=== PATIENT | female | born 2000 | race Caucasian/White ===

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

== ENCOUNTER → 2020-12-05 10:00 | Outpatient (BNVA) | payer BC, SELFPAY | PROVIDERS: PCP Nurse Practitioner Family; Visit Provider Family Medicine | DX: S89.90XA Unspecified injury of unspecified lower leg, initial encounter (principal); X58.XXXA Exposure to other specified factors, initial encounter | CPT/HCPCS: 73562 ==

== ENCOUNTER 2022-01-18 09:30 | Outpatient (CLI) | payer BC, SELFPAY ==
--- NOTE | 2022-01-18 10:05 | XR_ITS ---
WS: [id number] Cervical spine, 3 views, 01/18/2022 Clinical Data: CHRONIC NECK PAIN Comparison: None. Findings: No compression fractures are seen. The disc heights are normal. There is no prevertebral so ft tissue swelling. The odontoid is unremarkable. The soft tissues of the neck and the lung apices ar e normal. XR/XR cervical spine 3V* [id number] Impression: Negative cervical spine.
--- NOTE | 2022-01-18 10:19 | XR_ITS ---
WS: [id number] Thoracic spine, 3 views, 01/18/2022 Clinical Data: CHRONIC BACK PAIN Comparison: None. Findings: No compression fractures are seen. The disc heights are normal. The paraspinal regions are normal. There are clips in the right upper quadrant from a cholecystectomy . XR/XR thoracic spine 3V* [id number] Impression: Negative thoracic spine.
== END 2022-01-18 09:31 | disposition home or self-care (01) ==
PROVIDERS: PCP Nurse Practitioner Family; Visit Provider Family Medicine
DX: M54.2 Cervicalgia (principal); G89.29 Other chronic pain; M54.6 Pain in thoracic spine
CPT/HCPCS: 72040; 72072

== ENCOUNTER 2022-05-01 12:08 | Emergency (ER) | payer BC, SELFPAY ==
[2022-05-01 12:38] VITALS: BP 137/88; PULSE 85; RESP 14; TEMP 37; O2SAT 99
[2022-05-01 14:02] LABS: Basophils % 0.4 %; Eosinophils % 0.2 %; Hematocrit 40.9 % (37.0-47.0); Hemoglobin 13.5 g/dL (11.5-15.3); Lymphocytes # 1.4 10^3/uL (0.8-4.8); Lymphocytes % 26.5 %; Mean Corpuscular Hemoglobin 29.2 pg (28.0-34.0); Mean Corpuscular Volume 88.3 fl (81-99); Mean Platelet Volume 11.9 fL (7.4-10.4); Monocytes # 0.6 10^3/uL (0.2-0.9); Monocytes % 11.4 %; Neutrophils # 3.33 10^3/uL (1.8-7.7); Neutrophils % 61.1 %; Nucleated Red Blood Cells % 0 %; Platelet Count 230 10^3/cmm (130-400); Red Blood Count 4.63 10^6/uL (4.1-5.3); Red Cell Distribution Width 12.8 % (12.1-15.1); White Blood Count 5.4 10^3/uL (4.0-10.0)
[2022-05-01 14:17] LABS: Add Urine Microscopic? YES; Bilirubin Urine Neg (Negative); Blood Urine Neg (Negative); Glucose Urine UA Norm (Normal); Ketones Urine 2+ (Negative); Leukocyte Esterase Urine Negative (Negative); Nitrate Urine Negative (Negative); Protein Urine Neg (Negative); Specific Gravity, Urine 1.015 (1.005-1.030); Urine Appearance Cloudy (CLEAR); Urine Color Yellow (Yellow); Urobilinogen Urine Norm (Negative); pH Urine 6 (5-7)
[2022-05-01 14:35] LABS: Alanine Aminotransferase 47 U/L (0-33); Albumin Level 4.4 g/dL (3.5-5.2); Alkaline Phosphatase 55 U/L (35-105); Anion Gap 13.8 (5-19); Aspartate Amino Transferase 26 U/L (0-32); Blood Urea Nitrogen 4 mg/dL (6-20); Calcium 9.3 mg/dL (8.5-10.5); Carbon Dioxide 22 mmol/L (22-29); Chloride 104 mmol/L (98-107); Creatinine Clr Calc Pharmacy 193.7506; Globulin 2.7 g/dL (1.3-4.6); Glomerular Filtration Rate 154.3 mL/min (90-130); Glucose 81 mg/dL (65-115); Osmolality Calculated 278 mOsm/kg (285-295); Potassium 3.8 mmol/L (3.5-5.1); Sodium 136 mmol/L (136-145); Total Bilirubin 0.3 mg/dL (0.15-1.2); Total Protein 7.1 g/dL (6.6-8.7)
[2022-05-01 14:36] LABS: Add Urine Culture? No; Bacteria Urine TRACE /hpf
--- NOTE | 2022-05-01 14:42 | US_ITS ---
WS: [id number] ULTRASOUND ABDOMINAL AORTA HISTORY: vaginal bleeding <20 weeks COMPARISON: None available. TECHNIQUE: 2-D and Doppler imaging submitted. Normal size anteverted uterus. Intrauterine gestational sac with a mean diameter of 0.6 cm correspond s to gestation of 5 weeks and 4 days. There is a small yolk sac present. No pole or cardiac act ivity is confirmed at this time. May be due to very early gestation. The yolk sac is normal size. The re is a small subchorionic hemorrhage measuring 10 x 10 x 5 mm. Cervix is closed. No free fluid in the cul-de-sac. LEFT ovary measures 2.2 x 2.5 x 3.1 cm and contain s a corpus luteum measuring 1.4 x 1.5 x 2.2 cm. US/US OB transvaginal [id number] IMPRESSION: 1. Intrauterine gestational sac corresponds to a gestation of 5 weeks 4 days. 2. At this time there is no pole or cardiac activity identified. There i s a yolk sac. Differential includes too early to visualize pole or anembr yonic gestation. Recommend one week follow-up ultrasound to confirm development of pole development and cardiac activity. 3. Small subchorionic hemorrhage.
[2022-05-01] MEDS: sodium chloride 0.9% 1,000 ML 999 ML IV (15:57)
--- NOTE | 2022-05-01 16:45 | W.ED.ABDPA2 ---
Documented by User: KIERRA Ramey 05/01/22 19:49 HPI - Abdominal Pain General: Chief Complaint: Abdominal Pain Stated Complaint: abd pains, Less than 20 weeks Time Seen by Provider: 05/01/22 12:51 History of Present Illness: Patient is in today for lower abdominal pain. She reports that yesterday she had a little bit of a fever but has not had any today. She reports that she has a history of urinary tract infections and kidney infections. She does report that she thinks she is approximately 10 weeks . Her first visit with SENIOR MANAGER is 18 May. She reports that she has had some pretty significant nausea and vomiting although she is trying to stay well-hydrated with water. Associated Symptoms: Reports fever(s), nausea and vomiting; Denies chills and dysuria Review of Systems Const: Reports: fever(s); Denies: chills or body aches Card: Denies: chest pain or palpitations Resp: Denies: dyspnea, productive cough or non-productive cough GI: Reports: abdominal pain, nausea and vomiting : Reports: flank pain and vaginal bleeding (Noticed blood 1 time this morning with wiping only); Denies: difficulty voiding or dysuria PFSH ED PFSH: Medical History Recurrent UTI Surgical History History of tympanostomy Status post cholecystectomy Status post tonsillectomy and adenoidectomy Family History Denies family history of Colon cancer Ovarian cancer Diabetes Heart disease Hyperlipidemia Breast cancer Family history of thyroid problem Hypertension Uterine cancer Stroke Female Reproductive History: : 1 Physical Exam Const: COMMON NORMALS: no acute distress, patient oriented x3 and alert HENMT: COMMON NORMALS: TM's normal bilaterally TYMPANIC MEMBRANE: TM's normal bilaterally THROAT: posterior oropharynx normal and uvula midline Neck/C-Spine: COMMON NORMALS: no JVD Resp: COMMON NORMALS: normal respiratory effort, No use of accessory muscles and clear to auscultation bilaterally AUSCULTATION: clear to auscultation bilaterally Cardio: COMMON NORMALS: no JVD, regular rate, regular rhythm, S1 normal heart sound present, S2 normal heart sound present and No murmurs present (Cardio) RATE: regular rate RHYTHM: regular rhythm HEART SOUNDS: S1 normal heart sound present and S2 normal heart sound present GI: COMMON NORMALS: Soft to palpation INSPECTION: Yes normal to inspection PALPATION: Yes Soft to palpation and Yes Tenderness to palpation present (GI) Details: LLQ, RLQ and other (Suprapubic) OTHER: Mild tenderness to right and left lower quadrant abdomen and suprapubic region. No guarding, rebound tenderness no peritoneal signs. Patient does have slight left-sided CVA tenderness Neuro: COMMON NORMALS: patient oriented x3 SENSORIUM/ORIENTATION: Yes alert Course Vital Signs: Vital signs: Vital Signs Temperature 98.6 F 05/01/22 12:38 Pulse Rate 77 05/01/22 17:21 Respiratory Rate 15 05/01/22 17:21 Blood Pressure 118/68 05/01/22 17:21 Pulse Oximetry 98 05/01/22 17:21 Oxygen Delivery Me thod 05/01/22 12:38 MDM - Abdominal Pain Medical Decision Making Considered UTI, pyelonephritis, renal stone, ectopic , miscarriage, appendicitis.. The patient is not currently having vaginal bleeding and only noticed a small amount of pink blood when wiping 1 time. Patient is not sure of her dates for and has not had any confirmatory ultrasound. Urine is negative for leukoesterase or nitrates. Negative for hematuria. CBC is within normal limits. Less suspicion for UTI pyelonephritis and renal stone given UA results and CBC results. Low suspicion for appendicitis given the lack of rebound or guarding tenderness to the right lower quadrant abdomen as well as a normal white blood cell count. Patient does have ketones in her urine with ongoing vomiting I will hydrate patient and provide medication for nausea. Ultrasound transvaginal shows intrauterine gestational sac corresponding to a gestation 5 weeks 4 days without pole or cardiac activity identified. A small subchorionic hemorrhage is also noted. Discussed the results of ultrasound and lab testing with the patient. Her vital signs are stable she is afebrile and here. I do not see any evidence of acute bacterial infection at this time. Her abdomen exam does not indicate an acute abdomen process at this time. Advised patient of ultrasound results and need for follow-up ultrasound in a week or so. Advised her to continue to schedule follow-up with SENIOR MANAGER. Follow-up with primary care next week. I will place an order to case management to help facilitate an outpatient ultrasound repeat. Return to the ER as needed for any new or worsening symptoms including, but not limited to, increased pain, increased vomiting, fever, inability to keep down oral liquids. Lab Data 05/01/22 13:49 05/01/22 13:49 Labs/Radiology: Radiology Impressions Transvaginal US 05/01/22 14:42 IMPRESSION: 1. Intrauterine gestational sac corresponds to a gestation of 5 weeks 4 days. 2. At this time there is no pole or cardiac activity identified. There is a yolk sac. Differential includes too early to visualize pole or anembryonic gestation. Recommend one week follow-up ultrasound to confirm development of pole development and cardiac activity. 3. Small subchorionic hemorrhage. Laboratory Results WBC 5.4 10^3/uL (4.0-10.0) 05/01/22 13:49 RBC 4.63 10^6/uL (4.1-5.3) 05/01/22 13:49 Hgb 13.5 g/dL (11.5-15.3) 05/01/22 13:49 Hct 40.9 % (37.0-47.0) 05/01/22 13:49 MCV 88.3 fl (81-99) 05/01/22 13:49 MCH 29.2 pg (28.0-34.0) 05/01/22 13:49 MCHC 33.0 g/dL (30.0-36.0) 05/01/22 13:49 RDW 12.8 % (12.1-15.1) 05/01/22 13:49 Plt Count 230 10^3/cmm (130-400) 05/01/22 13:49 MPV 11.9 fL (7.4-10.4) H 05/01/22 13:49 Neut % (Auto) 61.1 % 05/01/22 13:49 Lymph % (Auto) 26.5 % 05/01/22 13:49 [place] % (Auto) 11.4 % 05/01/22 13:49 Eos % (Auto) 0.2 % 05/01/22 13:49 Baso % (Auto) 0.4 % 05/01/22 13:49 Neut # (Auto) 3.33 10^3/uL (1.8-7.7) 05/01/22 13:49 Lymph # (Auto) 1.4 10^3/uL (0.8-4.8) 05/01/22 13:49 [place] # (Auto) 0.6 10^3/uL (0.2-0.9) 05/01/22 13:49 Eos # (Auto) 0.0 10^3/uL (0.0-0.8) 05/01/22 13:49 Baso # (Auto) 0.0 10^3/uL (0.0-0.1) 05/01/22 13:49 Nucleated RBC % (auto) 0 % 05/01/22 13:49 Nucleated RBCs # 0.0 /100WBC 05/01/22 13:49 Sodium 136 mmol/L (136-145) 05/01/22 13:49 Potassium 3.8 mmol/L (3.5-5.1) 05/01/22 13:49 Chloride 104 mmol/L (98-107) 05/01/22 13:49 Carbon Dioxide 22 mmol/L (22-29) 05/01/22 13:49 Anion Gap 13.8 (5-19) 05/01/22 13:49 BUN 4 mg/dL (6-20) L 05/01/22 13:49 Creatinine 0.5 mg/dL (0.5-0.9) 05/01/22 13:49 GFR Calculation 154.3 mL/min (90-130) H 05/01/22 13:49 Glucose 81 mg/dL (65-115) 05/01/22 13:49 Calculated Osmolality 278 mOsm/kg (285-295) L 05/01/22 13:49 Calcium 9.3 mg/dL (8.5-10.5) 05/01/22 13:49 Total Bilirubin 0.3 mg/dL (0.15-1.2) 05/01/22 13:49 AST 26 U/L (0-32) 05/01/22 13:49 ALT 47 U/L (0-33) H 05/01/22 13:49 Alkaline Phosphatase 55 U/L (35-105) 05/01/22 13:49 Total Protein 7.1 g/dL (6.6-8.7) 05/01/22 13:49 Albumin 4.4 g/dL (3.5-5.2) 05/01/22 13:49 Globulin 2.7 g/dL (1.3-4.6) 05/01/22 13:49 Ser , Semi-Qnt 2665.00 mIU/mL 05/01/22 13:49 Urine Color Yellow (Yellow) 05/01/22 13:49 Urine Appearance Cloudy (CLEAR) A 05/01/22 13:49 Urine pH 6 (5-7) 05/01/22 13:49 Ur Specific [place] 1.015 (1.005-1.030) 05/01/22 13:49 Urine Protein Neg (Negative) 05/01/22 13:49 Urine Glucose (UA) Norm (Normal) 05/01/22 13:49 Urine Ketones 2+ (Negative) H 05/01/22 13:49 Urine Blood Neg (Negative) 05/01/22 13:49 Urine Nitrate Negative (Negative) 05/01/22 13:49 Urine Bilirubin Neg (Negative) 05/01/22 13:49 Urine Urobilinogen Norm mg/dL (Negative) 05/01/22 13:49 Ur Leukocyte Esterase Negative (Negative) 05/01/22 13:49 Urine RBC None /hpf (0-2) 05/01/22 13:49 Urine WBC None /hpf (0-5) 05/01/22 13:49 Ur Squamous Epith Cells None /hpf (0-5) 05/01/22 13:49 Amorphous Sediment Not Reportable 05/01/22 13:49 Urine Bacteria Trace /hpf (NONE) 05/01/22 13:49 Blood Type A Positive 05/01/22 13:47 Rho(D) Type Positive 05/01/22 13:47 Discharge Plan Discharge Patient Disposition: Home Clinical Impression: Abdominal pain, Abdominal pain during in first trimester Condition: Stable Prescriptions: New ondansetron 4 mg tablet,disintegrating 4 mg PO Q8H PRN (Reason: nausea and vomiting) 3 Days Qty: 9 0RF No Action ibuprofen 200 mg tablet 800 mg PO Q6H PRN (Reason: Pain) albuterol sulfate [ProAir HFA] 90 mcg/actuation HFA aerosol inhaler 2 puff INHALATION Q4H PRN (Reason: shortness of breath or wheezing) Qty: 8 3RF acetaminophen [Tylenol] 325 mg tablet 325 mg PO QID PRN (Reason: Pain) Flovent HFA 110 mcg/actuation HFA aerosol inhaler 1 puff INHALATION BID 28-800 mg-mcg Tablet 1 tab PO DAILY Discharge Orders: Discharge ED (Routine); Ordered 05/01/22 Ordered By: Delmy Carson Discharge Diet: Usual diet Discharge Activity: Limit activity as instructed Patient Instructions: Abdominal Pain (ED), Pelvic Rest (ED) Activity Restrictions/Additional Instructions: I recommend pelvic rest, nothing in the vagina, until released by SENIOR MANAGER. Make sure that you are resting and staying well-hydrated. Use Zofran only as needed for nausea and vomiting. Follow-up with primary care provider. Return to the ER for any new or worsening symptoms including but not limited to increased abdominal pain, fever, chills Coding Level of Care Code ED Soliciting Freight Agent for Chg Fwd Exam Detailed Documented by User: Enoch Chavarria DO 05/03/22 06:43 HPI - Abdominal Pain General: Chief Complaint: Abdominal Pain Stated Complaint: abd pains, Less than 20 weeks Time Seen by Provider: 05/01/22 12:51 PFSH ED PFSH: Medical History Recurrent UTI Surgical History History of tympanostomy Status post cholecystectomy Status post tonsillectomy and adenoidectomy Family History Denies family history of Colon cancer Ovarian cancer Diabetes Heart disease Hyperlipidemia Breast cancer Family history of thyroid problem Hypertension Uterine cancer Stroke Course Vital Signs: Vital signs: Vital Signs Temperature 98.6 F 05/01/22 12:38 Pulse Rate 77 05/01/22 17:21 Respiratory Rate 15 05/01/22 17:21 Blood Pressure 118/68 05/01/22 17:21 Pulse Oximetry 98 05/01/22 17:21 Oxygen Delivery Me thod 05/01/22 12:38 MDM - Abdominal Pain Medical Decision Making Considered UTI, pyelonephritis, renal stone, ectopic , miscarriage, appendicitis.. The patient is not currently having vaginal bleeding and only noticed a small amount of pink blood when wiping 1 time. Patient is not sure of her dates for and has not had any confirmatory ultrasound. Urine is negative for leukoesterase or nitrates. Negative for hematuria. CBC is within normal limits. Less suspicion for UTI pyelonephritis and renal stone given UA results and CBC results. Low suspicion for appendicitis given the lack of rebound or guarding tenderness to the right lower quadrant abdomen as well as a normal white blood cell count. Patient does have ketones in her urine with ongoing vomiting I will hydrate patient and provide medication for nausea. Ultrasound transvaginal shows intrauterine gestational sac corresponding to a gestation 5 weeks 4 days without pole or cardiac activity identified. A small subchorionic hemorrhage is also noted. Discussed the results of ultrasound and lab testing with the patient. Her vital signs are stable she is afebrile and here. I do not see any evidence of acute bacterial infection at this time. Her abdomen exam does not indicate an acute abdomen process at this time. Advised patient of ultrasound results and need for follow-up ultrasound in a week or so. Advised her to continue to schedule follow-up with SENIOR MANAGER. Follow-up with primary care next week. I will place an order to case management to help facilitate an outpatient ultrasound repeat. Return to the ER as needed for any new or worsening symptoms including, but not limited to, increased pain, increased vomiting, fever, inability to keep down oral liquids. Chart reviewed and patient discussed with midlevel. Agree with assessment and plan. Lab Data 05/01/22 13:49 05/01/22 13:49 Labs/Radiology: Radiology Impressions Transvaginal US 05/01/22 14:42
[2022-05-01] MEDS: ondansetron 2 mg/ML SDV 2 mL 4 MG IVP (17:16)
[2022-05-01 17:21] VITALS: BP 118/68; PULSE 77; RESP 15; O2SAT 98
--- NOTE | 2022-05-02 10:12 | DCPLANNER ---
salt manager had message to schedule an outpatient US for patient. After speaking with patient, who stated that she has an ultrasound scheduled at [facility] in [place] on May 18, 2022. Patient stated that she would wait and have the US at the clinic in [facility]. salt manager called the clinic in [place] and confirmed that patient has an US scheduled.
== END 2022-05-01 17:20 | disposition home or self-care (01) ==
PROVIDERS: Emergency Provider Nurse Practitioner Family
DX: O26.891 Other specified pregnancy related conditions, first trimester (principal); R10.9 Unspecified abdominal pain; Z3A.01 Less than 8 weeks gestation of pregnancy
CPT/HCPCS: 76817; 80053; 81001; 84702; 85025; 86900; 96361; 96374; 99285; J2405; J7030

== ENCOUNTER → 2022-06-04 11:00 | Outpatient (BNVA) | payer BC, MEDICAID, SELFPAY | PROVIDERS: Visit Provider Obstetrics & Gynecology | DX: Z34.90 Encounter for supervision of normal pregnancy, unspecified, unspecified trimester (principal) | CPT/HCPCS: 80307; 84315; 87086 ==

== ENCOUNTER → 2022-06-19 09:58 | Outpatient (BNVA) | payer BC, MEDICAID, SELFPAY | PROVIDERS: Visit Provider Obstetrics & Gynecology | DX: Z34.91 Encounter for supervision of normal pregnancy, unspecified, first trimester (principal); Z3A.12 12 weeks gestation of pregnancy | CPT/HCPCS: 76801 ==

== ENCOUNTER → 2022-06-29 11:30 | Outpatient (BNVA) | payer BC, MEDICAID, SELFPAY | PROVIDERS: Visit Provider Obstetrics & Gynecology | DX: Z34.91 Encounter for supervision of normal pregnancy, unspecified, first trimester (principal) | CPT/HCPCS: 84315; 85027; 86762; 86803; 86850; 86900; 87340; 87491; 87591; 87661; 87806; 88175 ==

== ENCOUNTER → 2022-06-30 02:08 | Outpatient (BNVA) | payer BC, MEDICAID, SELFPAY | PROVIDERS: Visit Provider Obstetrics & Gynecology | DX: Z34.90 Encounter for supervision of normal pregnancy, unspecified, unspecified trimester (principal) | CPT/HCPCS: 87522 ==

== ENCOUNTER → 2022-07-17 13:00 | Outpatient (BNVA) | payer BC, MEDICAID, SELFPAY | PROVIDERS: Visit Provider Nurse Practitioner Women's Health | DX: R76.8 Other specified abnormal immunological findings in serum; O99.320 Drug use complicating pregnancy, unspecified trimester; F12.90 Cannabis use, unspecified, uncomplicated | CPT/HCPCS: 80307; 84315; 86592 ==

== ENCOUNTER → 2022-08-13 10:28 | Outpatient (BNVA) | payer BC, MEDICAID, SELFPAY | PROVIDERS: Visit Provider Obstetrics & Gynecology | DX: O32.1XX0 Maternal care for breech presentation, not applicable or unspecified (principal); Z3A.20 20 weeks gestation of pregnancy | CPT/HCPCS: 76805 ==

== ENCOUNTER → 2022-08-30 08:20 | Outpatient (BNVA) | payer BC, MEDICAID, SELFPAY | PROVIDERS: Visit Provider Obstetrics & Gynecology | DX: Z34.90 Encounter for supervision of normal pregnancy, unspecified, unspecified trimester (principal) | CPT/HCPCS: 84315; 87086 ==

== ENCOUNTER → 2022-09-11 11:32 | Outpatient (BNVA) | payer BC, MEDICAID, SELFPAY | PROVIDERS: Visit Provider Obstetrics & Gynecology | DX: Z34.92 Encounter for supervision of normal pregnancy, unspecified, second trimester (principal); Z3A.24 24 weeks gestation of pregnancy | CPT/HCPCS: 76816; 82105; 82950; 84315 ==

== ENCOUNTER → 2022-10-09 08:45 | Outpatient (BNVA) | payer BC, MEDICAID, SELFPAY | PROVIDERS: Visit Provider Obstetrics & Gynecology | DX: Z34.90 Encounter for supervision of normal pregnancy, unspecified, unspecified trimester (principal) | CPT/HCPCS: 84315; 85025; 86592; 86803; 87522 ==

== ENCOUNTER → 2022-10-23 15:15 | Outpatient (BNVA) | payer BC, MEDICAID, SELFPAY | PROVIDERS: Visit Provider Obstetrics & Gynecology | DX: Z34.90 Encounter for supervision of normal pregnancy, unspecified, unspecified trimester (principal) | CPT/HCPCS: 83550; 84315; 86003; 86008 ==

== ENCOUNTER 2022-11-26 17:21 | Emergency (ER) | payer BC, MEDICAID, SELFPAY ==
[2022-11-26 17:25] VITALS: BP 111/71; PULSE 108; RESP 16; TEMP 36.7; O2SAT 97; BMI 39.6
[2022-11-26 18:22] VITALS: O2SAT 98
--- NOTE | 2022-11-26 18:40 | XRR_ITS ---
PROCEDURE INFORMATION: Exam: XR Chest Exam date and time: 11/26/2022 6:47 PM Age: 22 years old Clinical indication: Cough and shortness of breath; Additional info: Dyspnea, wheezing, rhonchi, PT is 36 weeks , PT informed of risks and still TECHNIQUE: Imaging protocol: Radiologic exam of the chest. Views: 1 view. COMPARISON: CR XR chest 2V* [id number] 06/23/2019 2:55 PM FINDINGS: Lungs: Unremarkable. No consolidation. Pleural spaces: Unremarkable. No pleural effusion. No pneumothorax. Heart/Mediastinum: Unremarkable. No cardiomegaly. Bones/joints: Unremarkable. XR/XR chest 1V portable [id number] IMPRESSION: No acute findings.
[2022-11-26 19:03] LABS: Basophils % 0.1 %; Eosinophils % 0.1 %; Hemoglobin 11.4 g/dL (11.5-15.3); Lymphocytes # 1.5 10^3/uL (0.8-4.8); Lymphocytes % 16.1 %; Mean Corpuscular HGB Conc 32.6 g/dL (30.0-36.0); Mean Corpuscular Hemoglobin 27.9 pg (28.0-34.0); Mean Corpuscular Volume 85.8 fl (81-99); Mean Platelet Volume 11.1 fL (7.4-10.4); Monocytes # 0.7 10^3/uL (0.2-0.9); Monocytes % 7.6 %; Neutrophils # 6.88 10^3/uL (1.8-7.7); Neutrophils % 75.7 %; Nucleated Red Blood Cells % 0 %; Platelet Count 218 10^3/cmm (130-400); Red Blood Count 4.08 10^6/uL (4.1-5.3); Red Cell Distribution Width 13.2 % (12.1-15.1); White Blood Count 9.1 10^3/uL (4.0-10.0)
[2022-11-26] MEDS: sodium chloride 0.9% 1,000 ML 999 ML IV (19:05)
[2022-11-26] MEDS: acetaminophen 1,000 MG/100 ML PIGGYBACK 400 MG IV (19:06)
[2022-11-26 19:28] LABS: Sodium 137 mmol/L (136-145)
[2022-11-26 19:29] VITALS: BP 107/56; PULSE 76; O2SAT 98
[2022-11-26 19:35] VITALS: BP 126/97; PULSE 101; RESP 17; O2SAT 94
[2022-11-26 19:41] LABS: Alanine Aminotransferase 9 U/L (0-33); Anion Gap 16.6 (5-19); Aspartate Amino Transferase 14 U/L (0-32); Calcium 9.1 mg/dL (8.5-10.5); Glucose 75 mg/dL (65-115); Total Bilirubin 0.2 mg/dL (0.15-1.2)
[2022-11-26 19:48] LABS: Add Urine Microscopic? YES; Bilirubin Urine Neg (Negative); Blood Urine Neg (Negative); Glucose Urine UA Norm (Normal); Ketones Urine 1+ (Negative); Leukocyte Esterase Urine Negative (Negative); Nitrate Urine Negative (Negative); Protein Urine Neg (Negative); Specific Gravity, Urine 1.005 (1.005-1.030); Urine Appearance SL Hazy (CLEAR); Urine Color Light yellow (Yellow); Urobilinogen Urine Neg (Negative); pH Urine 7 (5-7)
[2022-11-26 19:48] LABS: Blood Urea Nitrogen 2 mg/dL (6-20); Carbon Dioxide 21 mmol/L (22-29); Glomerular Filtration Rate 199.6 mL/min (90-130); Osmolality Calculated 279 mOsm/kg (285-295); Total Protein 6.4 g/dL (6.6-8.7)
[2022-11-26 19:49] LABS: Albumin Level 3.5 g/dL (3.5-5.2); Alkaline Phosphatase 100 U/L (35-105); Globulin 2.9 g/dL (1.3-4.6)
[2022-11-26 19:49] LABS: Add Urine Culture? No; Bacteria Urine 1+ /hpf; Squamous Epithelial Cell Urine 0-4 /hpf (0-5); WBC Urine 0-4 /hpf (0-5)
[2022-11-26 19:50] LABS: Chloride 103 mmol/L (98-107); Potassium 3.6 mmol/L (3.5-5.1)
[2022-11-26 19:55] LABS: Influenza A by IFA Negative (Negative); Influenza B by IFA Negative (Negative)
--- NOTE | 2022-11-26 20:08 | ED_ITS ---
HPI - COVID General: Chief Complaint: COVID symptoms Stated Complaint: sent by sulema/LARISA/radha to breathe/fever/cough Time Seen by Provider: 11/26/22 18:21 History of Present Illness: Patient presents to the ER with complaints of shortness of breath. Patient states she seen her PCP last week and was started on antibiotics biotic for an earache that she saw her PCP again who said she has fluid in her lungs so she directed her here to be further really worked up and checked out. Patient is 36 weeks . Patient states she feels no better after being on the antibiotics from the breathing standpoint but her ears do feel better. COVID Results: No Data to Display Review of Systems General: Reports: 10 or more systems reviewed and unremarkable except in HPI and below PFSH ED PFSH: Medical History No pertinent past medical history neghx: htn,dm,thyroid,dvt/pe PCP: Recurrent UTI Surgical History History of tympanostomy Status post cholecystectomy Status post tonsillectomy and adenoidectomy Family History Denies family history of Colon cancer Ovarian cancer Diabetes Heart disease Hyperlipidemia Breast cancer Family history of thyroid problem Hypertension Uterine cancer Stroke Social History Smoking and tobacco status: former smoker Alcohol intake: never Substance/Drug Use: never Adopted: No Caregiver/support person: No Lives independently: No Marital status: Single Physical Exam Const: COMMON NORMALS: no acute distress, average body habitus, patient oriented x3, no limitations, healthy appearing, alert and well nourished HENMT: COMMON NORMALS: normocephalic, atraumatic, hearing grossly normal bilaterally, external ears normal, Normal external nose present and moist oral mucous membranes HEAD & SCALP: normocephalic and atraumatic NOSE: Normal external nose present EXTERNAL EAR: Yes external ears normal Eye: COMMON NORMALS: Equal, round and reactive pupils present, EOMs intact bilaterally, conjunctivae normal and no scleral icterus CONJUNCTIVA: Yes conjunctivae normal PUPIL: Yes Equal, round and reactive pupils present Neck/C-Spine: COMMON NORMALS: full ROM, no lymphadenopathy, supple, no meningeal signs, no JVD and Thyroid normal THYROID: Thyroid normal Chest: COMMONS NORMALS: normal inspection of the chest and normal palpation of entire chest wall Resp: COMMON NORMALS: normal respiratory effort, No retractions, No use of accessory muscles and clear to auscultation bilaterally AUSCULTATION: clear to auscultation bilaterally Cardio: COMMON NORMALS: no JVD, regular rate, regular rhythm, S1 normal heart sound present, S2 normal heart sound present, No gallops present (Cardio), No clicks present (Cardio), No murmurs present (Cardio) and No rub (Cardio) RATE: regular rate RHYTHM: regular rhythm HEART SOUNDS: S1 normal heart sound present and S2 normal heart sound present GI: COMMON NORMALS: Normal to inspection, nondistended, normoactive bowel sounds present, Soft to palpation, non-tender and No hepatosplenomegaly present PALPATION: Yes Soft to palpation and Yes No hepatosplenomegaly present Neuro: COMMON NORMALS: patient oriented x3 SENSORIUM/ORIENTATION: Yes alert MENINGEAL SIGNS: Yes no meningeal signs Course Vital Signs: Vital signs: Vital Signs Temperature 98.1 F 11/26/22 17:25 Pulse Rate 101 H 11/26/22 19:35 Respiratory Rate 17 11/26/22 19:35 Blood Pressure 126/97 11/26/22 19:35 Pulse Oximetry 94 11/26/22 19:35 Oxygen Delivery Me thod Room Air 11/26/22 19:35 MDM - COVID Medical Decision Making Presents to the ER with complaints of shortness of breath and just not feeling good. Patient had lab work and a chest x-ray. All of which was essentially benign patient would not let her screen for COVID. Upon discharge patient got nauseous and was given Zofran in her IV. Patient will be discharged and followed up with her family practice physician and her OB and in the next week. Lab Data 11/26/22 18:54 11/26/22 18:54 Radiology Impressions Chest X-Ray 11/26/22 18:40 IMPRESSION: No acute findings. Laboratory Results WBC 9.1 10^3/uL (4.0-10.0) 11/26/22 18:54 RBC 4.08 10^6/uL (4.1-5.3) L 11/26/22 18:54 Hgb 11.4 g/dL (11.5-15.3) L 11/26/22 18:54 Hct 35.0 % (37.0-47.0) L 11/26/22 18:54 MCV 85.8 fl (81-99) 11/26/22 18:54 MCH 27.9 pg (28.0-34.0) L 11/26/22 18:54 MCHC 32.6 g/dL (30.0-36.0) 11/26/22 18:54 RDW 13.2 % (12.1-15.1) 11/26/22 18:54 Plt Count 218 10^3/cmm (130-400) 11/26/22 18:54 MPV 11.1 fL (7.4-10.4) H 11/26/22 18:54 Neut % (Auto) 75.7 % 11/26/22 18:54 Lymph % (Auto) 16.1 % 11/26/22 18:54 [place] % (Auto) 7.6 % 11/26/22 18:54 Eos % (Auto) 0.1 % 11/26/22 18:54 Baso % (Auto) 0.1 % 11/26/22 18:54 Neut # (Auto) 6.88 10^3/uL (1.8-7.7) 11/26/22 18:54 Lymph # (Auto) 1.5 10^3/uL (0.8-4.8) 11/26/22 18:54 [place] # (Auto) 0.7 10^3/uL (0.2-0.9) 11/26/22 18:54 Eos # (Auto) 0.0 10^3/uL (0.0-0.8) 11/26/22 18:54 Baso # (Auto) 0.0 10^3/uL (0.0-0.1) 11/26/22 18:54 Nucleated RBC % (auto) 0 % 11/26/22 18:54 Nucleated RBCs # 0.0 /100WBC 11/26/22 18:54 Sodium 137 mmol/L (136-145) 11/26/22 18:54 Potassium 3.6 mmol/L (3.5-5.1) 11/26/22 18:54 Chloride 103 mmol/L (98-107) 11/26/22 18:54 Carbon Dioxide 21 mmol/L (22-29) L 11/26/22 18:54 Anion Gap 16.6 (5-19) 11/26/22 18:54 BUN 2 mg/dL (6-20) L 11/26/22 18:54 Creatinine 0.4 mg/dL (0.5-0.9) L 11/26/22 18:54 GFR Calculation 199.6 mL/min (90-130) H 11/26/22 18:54 Glucose 75 mg/dL (65-115) 11/26/22 18:54 Calculated Osmolality 279 mOsm/kg (285-295) L 11/26/22 18:54 Calcium 9.1 mg/dL (8.5-10.5) 11/26/22 18:54 Total Bilirubin 0.2 mg/dL (0.15-1.2) 11/26/22 18:54 AST 14 U/L (0-32) 11/26/22 18:54 ALT 9 U/L (0-33) 11/26/22 18:54 Alkaline Phosphatase 100 U/L (35-105) 11/26/22 18:54 Total Protein 6.4 g/dL (6.6-8.7) L 11/26/22 18:54 Albumin 3.5 g/dL (3.5-5.2) 11/26/22 18:54 Globulin 2.9 g/dL (1.3-4.6) 11/26/22 18:54 Urine Color Light yellow (Yellow) 11/26/22 18:26 Urine Appearance Sl hazy (CLEAR) A 11/26/22 18:26 Urine pH 7 (5-7) 11/26/22 18:26 Ur Specific [place] 1.005 (1.005-1.030) 11/26/22 18:26 Urine Protein Neg (Negative) 11/26/22 18:26 Urine Glucose (UA) Norm (Normal) 11/26/22 18:26 Urine Ketones 1+ (Negative) H 11/26/22 18:26 Urine Blood Neg (Negative) 11/26/22 18:26 Urine Nitrate Negative (Negative) 11/26/22 18:26 Urine Bilirubin Neg (Negative) 11/26/22 18:26 Urine Urobilinogen Neg mg/dL (Negative) 11/26/22 18:26 Ur Leukocyte Esterase Negative (Negative) 11/26/22 18:26 Urine RBC None /hpf (0-2) 11/26/22 18:26 Urine WBC 0-4 /hpf (0-5) H 11/26/22 18:26 Ur Squamous Epith Cells 0-4 /hpf (0-5) H 11/26/22 18:26 Amorphous Sediment Not Reportable 11/26/22 18:26 Urine Bacteria 1+ /hpf (NONE) H 11/26/22 18:26 Influenza Type A Ag Negative (Negative) 11/26/22 18:55 Influenza Type B Ag Negative (Negative) 11/26/22 18:55 No Data to Display Discharge Plan Discharge Patient Disposition: Home Clinical Impression: Nausea and vomiting during , Shortness of breath Condition: Stable Prescriptions: No Action albuterol sulfate [ProAir HFA] 90 mcg/actuation HFA aerosol inhaler 2 puff INHALATION Q4H PRN (Reason: shortness of breath or wheezing) Qty: 8 3RF acetaminophen [Tylenol] 325 mg tablet 325 mg PO QID PRN (Reason: Pain) Zyrtec 10 mg capsule 10 mg PO DAILY PRN ferrous sulfate 325 mg (65 mg iron) tablet 325 mg PO DAILY Qty: 90 0RF Gummies 400 mcg-35 mg- 25 mg-5 mg tablet,chewable PO ondansetron HCl 4 mg tablet 4 mg PO Q6H PRN (Reason: nausea and vomiting) Qty: 30 0RF Flovent HFA 110 mcg/actuation HFA aerosol inhaler 1 puff INHALATION BID Discharge Orders: Discharge ED (Routine); Ordered 11/26/22 Ordered By: Herberth Sullivan Referrals: Tawanda Rizzo, SHIPFITTER [Primary Care Provider] - 1 week Patient Instructions: Nausea and Vomiting in (ED), Shortness of Breath (ED) Activity Restrictions/Additional Instructions: Please follow-up with your family doctor and/or ICE PLATFORM SUPERVISOR in the next 7 days or sooner as needed. Coding Level of Care Code ED Hazardous Waste Technician for Alexi Harrell
[2022-11-26] MEDS: ondansetron 2 mg/ML SDV 2 mL 4 MG IVP (20:10)
[2022-11-26 20:18] VITALS: BP 106/62
[2022-11-26 20:44] VITALS: BP 106/62; PULSE 91; RESP 18; O2SAT 99
== END 2022-11-26 20:45 | disposition home or self-care (01) ==
PROVIDERS: Emergency Provider Emergency Medicine; PCP Nurse Practitioner
DX: O26.893 Other specified pregnancy related conditions, third trimester (principal); R11.2 Nausea with vomiting, unspecified; R06.02 Shortness of breath; Z3A.36 36 weeks gestation of pregnancy; Z87.891 Personal history of nicotine dependence
CPT/HCPCS: 71045; 80053; 81001; 85025; 87804; 96365; 96366; 99284; J0131; J2405; J7030

== ENCOUNTER → 2022-12-04 12:00 | Outpatient (BNVA) | payer BC, MEDICAID, SELFPAY | PROVIDERS: PCP Nurse Practitioner; Visit Provider Obstetrics & Gynecology | DX: Z34.90 Encounter for supervision of normal pregnancy, unspecified, unspecified trimester (principal) | CPT/HCPCS: 84315; 87081 ==

== ENCOUNTER 2022-12-19 22:18 | Outpatient (CLI) | payer BC, MEDICAID, SELFPAY ==
[2022-12-19 22:15] VITALS: BMI 41.8
[2022-12-19 22:37] VITALS: BP 127/72; PULSE 107; TEMP 36.8
[2022-12-19 22:49] VITALS: RESP 16; TEMP 36.8
[2022-12-19 23:02] LABS: Actim Prom Negative; Nitrazine Paper, PH Negative
[2022-12-20 00:28] VITALS: BP 136/63; PULSE 81
[2022-12-20 00:30] VITALS: BP 136/63; PULSE 81; RESP 17; TEMP 36.8
== END 2022-12-20 00:40 | disposition home or self-care (01) ==
LOC: OPOB 22:19 → OBGYN 22:24
PROVIDERS: PCP Nurse Practitioner; Visit Provider Obstetrics & Gynecology
DX: O26.899 Other specified pregnancy related conditions, unspecified trimester (principal); N89.8 Other specified noninflammatory disorders of vagina; Z3A.00 Weeks of gestation of pregnancy not specified
CPT/HCPCS: 59025; 83986; 84112; 99211

== ENCOUNTER → 2022-12-20 15:23 | Outpatient (BNVA) | payer BC, MEDICAID, SELFPAY | PROVIDERS: PCP Nurse Practitioner; Visit Provider Obstetrics & Gynecology | DX: Z34.90 Encounter for supervision of normal pregnancy, unspecified, unspecified trimester (principal) | CPT/HCPCS: 81000 ==

== ENCOUNTER 2022-12-21 23:12 | Inpatient (IN) | payer BC, MEDICAID, SELFPAY ==
[2022-12-21] VITALS (12 sets, daily range): BP systolic 93–146; BP diastolic 50–79; PULSE 15–108; RESP 15; BMI 40.7
[2022-12-21 18:32] LABS: Hematocrit 32.4 % (37.0-47.0); Hemoglobin 10.6 g/dL (11.5-15.3); Mean Corpuscular HGB Conc 32.7 g/dL (30.0-36.0); Mean Corpuscular Hemoglobin 27.4 pg (28.0-34.0); Mean Corpuscular Volume 83.7 fl (81-99); Mean Platelet Volume 12.4 fL (7.4-10.4); Platelet Count 237 10^3/cmm (130-400); Red Blood Count 3.87 10^6/uL (4.1-5.3); Red Cell Distribution Width 13.9 % (12.1-15.1); White Blood Count 8.3 10^3/uL (4.0-10.0)
--- NOTE | 2022-12-21 18:35 | PM.OPHPUD ---
Labor & Delivery H&P Update Date of Procedure: December 21, 2022 Date H&P Performed: 12/20/22 H&P update information: I have reviewed H&P completed within last 30 days, I have examined patient prior to procedure and No changes to prior documentation Admission Diagnosis:
[2022-12-21] MEDS: miSOPROStol 100 mcg tablet 25 MCG VAGINAL ×2 (18:39→22:53)
[2022-12-21 18:40] LABS: Amphetamines Screen Urine Negative (Negative); Barbiturates Screen Urine Negative (Negative); Benzodiazepines Screen Urine Negative (Negative); Cocaine Screen Urine Negative (Negative); Opiate Screen Urine Negative (Negative); PCP Screen Urine Negative (Negative); THC Screen Urine Positive (Negative)
[2022-12-21 18:46] LABS: Slide Review Slide Review Perform
[2022-12-21 18:55] LABS: Absolute Neutrophil 5.9 10^3/cmm (1.4-6.5); Absolute Segmented Neutrophil 5.9 10/cmm (1.6-7.1); Eosinophils 1 %; Lymphocytes 21 %; Lymphocytes Absolute 1.7 10^3/cmm (1.2-3.4); Monocytes Absolute 0.6 10^3/cmm (0.1-0.6); Platelet Estimate Normal (Normal); Segmented Neutrophils 71 %; Total Cells Counted 100 (0-100)
[2022-12-22] VITALS (63 sets, daily range): BP systolic 108–171; BP diastolic 53–94; PULSE 52–100; RESP 15–16; TEMP 35.7–37.3; O2SAT 88–100
[2022-12-22] MEDS: metoclopramide 5 mg/mL SDV 2 mL 10 MG IV (04:47)
[2022-12-22] MEDS: lactated ringers 1,000 ML 999 ML IV ×2 (05:00→06:11)
--- NOTE | 2022-12-22 06:24 | ANES.PREANE2 ---
Pre-Anesthetic Assessment Height/Weight: Height 1.6 m Weight 104.326 kg Temp Pulse Resp BP O2 Del Method 98.3 F 68 15 118/63 Room Air 12/19/22 22:49 12/22/22 02:34 12/21/22 18:14 12/22/22 02:34 12/22/22 03:08 Preop Diagnosis: labor pain epidural Familial anesthetic complications: none Was Beta Benjie taken within 24 hours: N/A Was Clonidine taken within 24 hours: N/A Social No alcohol and No tobacco Exam alert, oriented x 3, clear to auscultation bilaterally and regular rate & rhythm Airway Submandibular: within normal limits Cervical ROM: within normal limits Mallampati: Class II Dentition: full Pulmonary None reported CV/HEM Anemia None reported Hepatic None reported GI Gastroesophageal Reflux Disease Metabolic None reported Musc/skel None reported Neuropsych None reported Anesthetic Plan ASA status: 2 Anesthesia: Regional (specify below) Risk of > 500 ml blood loss (7ml/kg in children): No Medications/Allergies Home Medications Medication Instructions Recorded Confirmed Last Taken Type albuterol sulfate 90 mcg/actuation 2 puff inhalation Q4H PRN 06/23/19 12/20/22 Unknown Rx aerosol inhaler (ProAir HFA) shortness of breath or wheezing #8 grams acetaminophen 325 mg tablet 325 mg PO QID PRN Pain 09/16/19 12/20/22 Unknown History (Tylenol) fluticasone propionate 110 1 puff inhalation BID 05/01/22 12/20/22 Unknown History mcg/actuation HFA aerosol inhaler (Flovent HFA) PNV 153-FA 400 mcg-om3 35 mg-dha tab PO 09/11/22 12/20/22 Unknown History 25 mg-epa 5 mg-fish oil chew tablet ( Gummies) cetirizine 10 mg capsule (Zyrtec) 10 mg PO DAILY PRN 09/11/22 12/20/22 Unknown History ferrous sulfate 325 mg (65 mg 325 mg PO DAILY #90 tabs 09/11/22 12/20/22 Unknown Rx iron) tablet ondansetron HCl 4 mg tablet 4 mg PO Q6H PRN nausea and 09/18/22 12/20/22 Unknown Rx vomiting #30 tabs Allergies Allergy/AdvReac Type Severity Reaction Status Date / Time No Known Allergies Allergy Verified 12/20/22 14:33 Current Medications Generic Name Dose Route Start Last Admin Trade Name Freq PRN Reason Stop Dose Admin Lactated Ringer's 1,000 mls @ 999 mls/hr 12/22/22 04:26 12/22/22 06:11 Lactated Ringers IV 999 mls/hr .Q1H1M PRN Administration See label comments PFSH Anesthesia Medical History No pertinent past medical history neghx: htn,dm,thyroid,dvt/pe PCP: Recurrent UTI Surgical History History of tympanostomy Status post cholecystectomy Status post tonsillectomy and adenoidectomy Family History Denies family history of Colon cancer Ovarian cancer Diabetes Heart disease Hyperlipidemia Breast cancer Family history of thyroid problem Hypertension Uterine cancer Stroke Female Reproductive History : 1 Data Anesthesia 12/21/22 17:33 Short CBC 12/21/22 Range/Units 17:33 WBC 8.3 (4.0-10.0) 10^3/uL Hgb 10.6 L (11.5-15.3) g/dL Hct 32.4 L (37.0-47.0) % MCV 83.7 (81-99) fl Plt Count 237 (130-400) 10^3/cmm Cardiac Studies: No Data to Display
[2022-12-22] MEDS: ROPivacaine syringe 100 MG/50 ML SYRINGE 13 MG EPIDURAL (06:47)
--- NOTE | 2022-12-22 06:53 | ANES.PROC ---
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 given, vitals taken during procedure and satisfactory throughout, patient admits to decrease pain, report of procedure to OB RN Epidural: Time Out Performed: Yes Consents Signed: Procedure Consent Consent: requested by attending/covering physician, from patient, risks and benefits reviewed and patient agrees to proceed Lumbar Level: L3-L4 Epidural position: sitting Epidural procedure: sterile prep of area, 1% lidocaine to numb the area (3 mL), 18 g needle, negative for paresthesia passed, neg for paresthesia, test dose given, 1.5% xylocaine 1:200k epi (5 mL), 0.2% Ropivacaine bolus ml (5 mL), placed PCEA, no systemic response, sterile dressing applied, L.U.D. no apparent complications and 0.2% Ropiavacaine @ mls/hr (13 mL/hr)
[2022-12-22] MEDS: lactated ringers 1,000 ML 125 ML IV (07:32)
[2022-12-22] MEDS: oxytocin 30 UNIT/500 ML BAG 600 UNIT IV (09:12)
--- NOTE | 2022-12-22 09:20 | PM.DELIVERY ---
Delivery Note: Date of delivery: December 22, 2022 Pre-delivery diagnoses: Term Post-delivery diagnoses: Term delivered Procedure: Spontaneous vaginal delivery Delivering Physician: Zen Carson MD Estimated blood loss (mL): 300 Pre-Delivery Course: is a 22 year old established patient with an Unknown LMP and an JAMILA of 12/30/22 based on 12 week sonogram placing her at 39 0/7 weeks gestation. CC: Admitted for elective induction HPI: Received appropriate care. Daily vitamins since start of care. labs have all been normal, except antibodies positive for hepatitis C, negative for HIV. Positive for THC. She was found to negative for Group B Strep from screening at 36 weeks. She has gained approximately 16 lbs throughout the . She denies a history of HTN during . Glucose tolerance screening for gestational diabetes was negative. Delivery: The patient was noted to be complete and pushing, so was placed in the dorsal lithotomy position, prepped and draped in the usual sterile fashion for a vaginal delivery. Pt. Noted to have epidural anesthesia. At 0907 the patient delivered a viable term female infant weighing 2990 g with scores of 8 and 9 at one and five minutes, respectively. The vertex was delivered spontaneously over intact perineum. The patient was asked to push and the head delivered spontaneously in the CAYETANO position, over an intact perineum. A nuchal cord was checked and none noted. The anterior shoulder delivered easily and the posterior shoulder followed. The remainder of the was easily delivered and the oropharynx and nasopharynx was bulb suctioned. The was noted to have spontaneous cry and spontaneous movement of all four extremities. The cord was clamped x 2 and cut and noted to have 2 arteries and one vein. The infant was passed to the mother's at the where nursing personnel were in attendance. The placenta delivered intact spontaneously and the uterus was explored. 20 units of Pitocin was placed in the IV bag to firm the uterus. Examination of the cervix and vaginal vault did not reveal any lacerations. A vaginal pack was then placed. Examination of the perineum showed no lacerations. The vaginal pack was then removed. The patient tolerated this procedure well, and recovered in L&D with her in their LDR room. All sponge and needle counts were correct. Post-Delivery Status: Good and stable History History History 1 Term 0 0 Miscarriages/Ectopic 0 Living Children 0 A&P Assessment and plan (1) Term delivered: without complication. Coding Level of Care Code Acute Code for Chg Fwd Diagnoses Term delivered O80
[2022-12-22] MEDS: HYDROcodone-acetaminophen 5-325 mg Tablet PO (10:21)
[2022-12-22] MEDS: benzocaine-menthol 78 gm Canister 1 SPRAY TOPICAL (10:22)
[2022-12-22] MEDS: lanolin oint 7 gm 1 APPLIC TOPICAL (10:22)
[2022-12-22] MEDS: ibuprofen 800 mg tablet PO ×2 (14:59→20:18)
[2022-12-22] MEDS: acetaminophen 325 mg Tablet PO (18:24)
[2022-12-22] MEDS: calcium carbonate 500 mg Chew Tablet 1000 MG PO (18:27)
[2022-12-22 22:19] LABS: Hematocrit 31.2 % (37.0-47.0); Mean Corpuscular HGB Conc 32.1 g/dL (30.0-36.0); Mean Corpuscular Hemoglobin 27.4 pg (28.0-34.0); Mean Corpuscular Volume 85.5 fl (81-99); Mean Platelet Volume 12.2 fL (7.4-10.4); Platelet Count 256 10^3/cmm (130-400); Red Blood Count 3.65 10^6/uL (4.1-5.3); Red Cell Distribution Width 13.8 % (12.1-15.1); White Blood Count 11.4 10^3/uL (4.0-10.0)
[2022-12-23] MEDS: acetaminophen 325 mg Tablet PO (01:55)
[2022-12-23] MEDS: HYDROcodone-acetaminophen 5-325 mg Tablet PO ×2 (03:27→10:50)
[2022-12-23 03:29] VITALS: BP 124/79; PULSE 96; TEMP 36.3
[2022-12-23 03:33] VITALS: RESP 16
--- NOTE | 2022-12-23 08:00 | ANE.PACU2 ---
Inpatient post-anesthesia follow up: Airway intact: Yes Vital signs: Temperature 98.4 F Pulse Rate 81 Respiratory Rate 16 Blood Pressure 108/62 Pulse Oximetry 98 Oxygen Delivery Me thod Room Air Oxygen Flow Rate Fraction of Inspir ed Oxygen Hydration adequate: Yes Nausea and vomiting: No Pain level: 1 Mental status: Baseline
[2022-12-23] MEDS: prenatal vitamin Capsule 1 CAP PO (08:21)
[2022-12-23] MEDS: ibuprofen 800 mg tablet PO (08:21)
[2022-12-23 09:34] VITALS: BP 105/57; PULSE 78; RESP 16; TEMP 36.3; O2SAT 98
--- NOTE | 2022-12-23 12:02 | PM.OBGYDC ---
Discharge Providers COCONUT JELLY ROLLER Date of Admission: 12/22/22 07:44 Date of Discharge: 12/23/22 Attending Provider at Admission: Zen Carson MD Attending Provider at Discharge: Zen Carson MD Primary COCONUT JELLY ROLLER: Zen Carson MD Primary Care Provider: TAMIKA Hackett Diagnoses at Discharge Discharge Diagnosis (1) Term delivered: Status: Acute Reason for Visit Reason for Visit: IOL Brief History: is a 22 year old established patient with an Unknown LMP and an JAMILA of 12/30/22 based on 12 week sonogram placing her at 39 0/7 weeks gestation. CC: Admitted for elective induction HPI: Received appropriate care. Daily vitamins since start of care. labs have all been normal, except antibodies positive for hepatitis C, negative for HIV. Positive for THC. She was found to negative for Group B Strep from screening at 36 weeks. She has gained approximately 16 lbs throughout the . She denies a history of HTN during . Glucose tolerance screening for gestational diabetes was negative. Hospital Course Hospital Course Mrs. George 20-year-old female G1, P0 admitted at 39 weeks for elective induction. Misoprostol was used for cervical ripening, then she started spontaneously with labor and progressed to have a spontaneous vaginal delivery without complications. overnight observation was uneventful. She is afebrile and hemodynamically stable day 1. Tolerating diet well. Ambulating without difficulty. She was counseled regarding pelvic rest for 6 weeks (no sex, no tampons, no vaginal douches). Return to the emergency room if any fever, increased bleeding or pain. Refers she will be using the implant for contraception when she comes back at the 6-week visit. Information Peripartum Data: Infant Delivery Method: Vaginal Physical Exam Narrative: GA; alert and oriented x 3 HEENT: normal Breasts: engorged Nipples - skin intact Lungs; clear to auscultation Heart: regular rhythm, no murmurs. Abd: Appropriately tender. BS+. Uterine fundus below umbilicus. No Fundal Tenderness. Perineum: normal lochia. Extremities: no edema, no cyanosis, no tenderness. Urinary Catheter Management: Darby: Cath Placed During This Visit: yes, but has since been removed by the nurse Reason for Continuing Indwelling Catheter: Decision to DC Catheter Urinary Catheter Date of Insertion: 12/22/22 Urinary Catheter Time of Insertion: 07:40 Date Urinary Catheter Removed: 12/22/22 Time Urinary Catheter Discontinued: 08:45 History History History 1 Term 0 0 Miscarriages/Ectopic 0 Living Children 0 Discharge Data Studies Completed and Pending Laboratory Results WBC 11.4 10^3/uL (4.0-10.0) H 12/22/22 21:45 RBC 3.65 10^6/uL (4.1-5.3) L 12/22/22 21:45 Hgb 10.0 g/dL (11.5-15.3) L 12/22/22 21:45 Hct 31.2 % (37.0-47.0) L 12/22/22 21:45 MCV 85.5 fl (81-99) 12/22/22 21:45 MCH 27.4 pg (28.0-34.0) L 12/22/22 21:45 MCHC 32.1 g/dL (30.0-36.0) 12/22/22 21:45 RDW 13.8 % (12.1-15.1) 12/22/22 21:45 Plt Count 256 10^3/cmm (130-400) 12/22/22 21:45 MPV 12.2 fL (7.4-10.4) H 12/22/22 21:45 Lymph % (Auto) Not Reportable 12/21/22 17:33 Whiteside % (Auto) Not Reportable 12/21/22 17:33 Lymph # (Auto) Not Reportable 12/21/22 17:33 Whiteside # (Auto) Not Reportable 12/21/22 17:33 Total Counted 100 (0-100) 12/21/22 17:33 Atypical Lymphs % 0.0 % (0-5) 12/21/22 17:33 Absolute Neutrophils 5.9 10^3/cmm (1.4-6.5) 12/21/22 17:33 Segmented Neutrophils 71 % 12/21/22 17:33 Abs Segm Neuts (Man) 5.9 10/cmm (1.6-7.1) 12/21/22 17:33 Band Neutrophils 0.0 % 12/21/22 17:33 Abs Band Neuts (Man) 0.0 10^3/cmm (0.0-1.2) 12/21/22 17:33 Absolute Lymphocytes 1.7 10^3/cmm (1.2-3.4) 12/21/22 17:33 Lymphocytes (Manual) 21 % 12/21/22 17:33 Monocytes (Manual) 7.0 % 12/21/22 17:33 Absolute Monocytes 0.6 10^3/cmm (0.1-0.6) 12/21/22 17:33 Eosinophils (Manual) 1 % 12/21/22 17: Absolute Eosinophils 0.0 10^3/cmm (0.0-0.7) 12/21/22 17:33 Basophils (Manual) 0.0 % 12/21/22 17: Absolute Basophils 0.0 10^3/cmm (0.0-0.2) 12/21/22 17:33 Metamyelocytes 0.0 % 12/21/22 17:33 Myelocytes 0.0 % 12/21/22 17: Promyelocytes 0.0 % 12/21/22 17:33 Nucleated RBCs 0.0 /100WBC (0-1) 12/21/22 17:33 Platelet Estimate Normal (Normal) 12/21/22 17:33 Urine Opiates Screen Negative ng/mL (Negative) 12/21/22 17:33 Ur Barbiturates Screen Negative ng/mL (Negative) 12/21/22 17:33 Ur Phencyclidine Scrn Negative ng/mL (Negative) 12/21/22 17:33 Ur Amphetamines Screen Negative ng/mL (Negative) 12/21/22 17:33 U Benzodiazepines Scrn Negative ng/mL (Negative) 12/21/22 17:33 Urine Cocaine Screen Negative ng/mL (Negative) 12/21/22 17:33 U Marijuana (THC) Screen Positive ng/mL (Negative) H 12/21/22 17:33 Vitals Last Vital Signs Temp 97.3 F L 12/23/22 09:34 Pulse 78 12/23/22 09:34 Resp 16 12/23/22 09:34 BP 105/57 12/23/22 09:34 Pulse Ox 98 12/23/22 09:34 O2 Del Method Room Air 12/23/22 09:34 Discharge Plan Discharge Patient Disposition: Home Condition: Stable Prescriptions: New docusate sodium [Colace] 100 mg capsule 100 mg PO BID Qty: 60 0RF ibuprofen 800 mg tablet 800 mg PO TID PRN (Reason: pain) Qty: 60 0RF acetaminophen 325 mg capsule 325 mg PO Q4H PRN (Reason: fever or pain) Qty: 60 0RF ferrous sulfate [Iron (ferrous sulfate)] 325 mg (65 mg iron) tablet 325 mg PO BID Qty: 60 0RF Continued albuterol sulfate [ProAir HFA] 90 mcg/actuation HFA aerosol inhaler 2 puff INHALATION Q4H PRN (Reason: shortness of breath or wheezing) Qty: 8 3RF acetaminophen [Tylenol] 325 mg tablet 325 mg PO QID PRN (Reason: Pain) Zyrtec 10 mg capsule 10 mg PO DAILY PRN ferrous sulfate 325 mg (65 mg iron) tablet 325 mg PO DAILY Qty: 90 0RF Gummies 400 mcg-35 mg- 25 mg-5 mg tablet,chewable PO ondansetron HCl 4 mg tablet 4 mg PO Q6H PRN (Reason: nausea and vomiting) Qty: 30 0RF Flovent HFA 110 mcg/actuation HFA aerosol inhaler 1 puff INHALATION BID Discharge Orders: Discharge Order (Routine); Ordered 12/23/22 Ordered By: Zen Carson Referrals: Zen Carson MD [Physician] - 6 Weeks (Please call and schedule an appointment ) Discharge Diet: Usual diet Discharge Activity: Limit activity as instructed Patient Instructions: Ibuprofen (By mouth), Etonogestrel (Implant) (Nexplanon, Implanon), Depression (DC), Bleeding (DC), Preeclampsia and Eclampsia After Delivery (GEN), Breast Care for the Mother (DC), Hemorrhage (DC), OB Discharge Report, OB Food/Drug Interaction Guide, OB Care at Home, Opioid Safety, OB Home Care, OB Vaginal Deliveries - [facility] Activity Restrictions/Additional Instructions: 1. Please call [facility] on next working day to make your appointment in 6 weeks. 2. Please stay home until you come back to the clinic on first post-hospatilization check up. 3. Please follow instructions on your medications CAREFULLY. 4. If you have abdominal incision, do not cover it unless dressing is necessary because of drainage. OK to shower, but avoid bath. Leave steri-strips until they fall off. If they are still on one week after surgery, you may remove them. 5. If you had vaginal surgery or vaginal repair, Dr. Carson may instruct you to take SITZ bath. 6. Yellow, blood tinged odorous vaginal discharge is usually normal after hysterectomy or vaginal surgeries. 7. No SEXUAL INTERCOURSE, tampons, or douches until you are completely released from the post-operative care. 8. Avoid constipation by eating right and maybe using some Metamucil or Milk of Magnesia. 9. All prescription refills are given during the working hours. Please do no wait till it runs out. Call the clinic at [phone] before your medication runs out. The clinic will get in touch with your doctor to prescribe medications if necessary. 10. Please remain within 40 mile radius from our hospital because emergencies do happen now and then during the post-operative period. 11. If you have stairs at home, take one step at a time slowly and minimize the number of trips. It helps to stay in one floor for the next few days. No lifting except what you can lift by one hand until you are released from the post-operative care. 12. Driving is discouraged until you are well healed. It may be 3-4 weeks before you feel strong enough to drive. You should be able to turn and look through the rear window without pain and you should be able to push the brake pedal very hard without pain before you drive. No fast rules, but SAFETY should be your primary concern. DO NOT drive if you are on sedating medications such as narcotics. 13. Call the clinic (during working hours) to make urgent appointment or go to the Emergency room, if any of the following occurs: i. Vaginal bleeding becomes heavy, more than a period. ii. Incision becomes red and sore, or drains pus. iii. Your TEMPERATURE is over 100.4F or you have chill. iv. IV site becomes red and swollen (a little ``knot?? is usually OK) v. Persistent nausea and vomiting vi. Persistent constipation or diarrhea vii. Rash or allergic reaction to medications. Discharge Attestations COCONUT JELLY ROLLER Time Spent in Discharge Care*: greater than 30 min Coding Level of Care Code Acute Code for Chg Fwd Diagnoses Term delivered O80
[2022-12-23] MEDS: pneumococcal (23 valent) SDV 0.5 mL IM (13:01)
[2022-12-23 13:17] VITALS: TEMP 36.7
[2022-12-23 13:18] VITALS: BP 108/62; PULSE 81
[2022-12-23 13:20] VITALS: BP 108/62; PULSE 81; RESP 16; TEMP 36.9
== END 2022-12-23 13:30 | disposition home or self-care (01) | DRG 806 ==
LOC: OPOB 23:12 → OBGYN 12-22 07:43
PROVIDERS: Admitting Provider Obstetrics & Gynecology; PCP Nurse Practitioner; Visit Provider Obstetrics & Gynecology
DX: O98.42 Viral hepatitis complicating childbirth (principal); O99.324 Drug use complicating childbirth; Z37.0 Single live birth; B19.20 Unspecified viral hepatitis C without hepatic coma; F12.90 Cannabis use, unspecified, uncomplicated; Z3A.39 39 weeks gestation of pregnancy; O75.89 Other specified complications of labor and delivery; K21.9 Gastro-esophageal reflux disease without esophagitis
CPT/HCPCS: 36415; 51702; 59025; 59409; 80306; 85007; 85025; 85027; 90471; 90732; 99211; G0378; J2590; J2765; J2795; J7120

== ENCOUNTER 2023-08-23 16:05 | Emergency (ER) | payer BC, MEDICAID, SELFPAY ==
[2023-08-23 16:13] VITALS: BP 163/107; PULSE 111; RESP 18; TEMP 37; O2SAT 98
[2023-08-23 17:19] LABS: HCG, Serum Qual Negative (Negative)
[2023-08-23 17:35] LABS: Alanine Aminotransferase 29 U/L (0-33); Albumin Level 4.5 g/dL (3.5-5.2); Alkaline Phosphatase 100 U/L (35-105); Anion Gap 18.7 (5-19); Aspartate Amino Transferase 17 U/L (0-32); Blood Urea Nitrogen 11 mg/dL (6-20); Calcium 9.6 mg/dL (8.5-10.5); Carbon Dioxide 20 mmol/L (22-29); Chloride 105 mmol/L (98-107); Creatinine Clr Calc Pharmacy 123.2006; Globulin 3.5 g/dL (1.3-4.6); Glomerular Filtration Rate 88.9 mL/min (90-130); Glucose 91 mg/dL (65-115); Lipase 15 U/L (13-60); Osmolality Calculated 289 mOsm/kg (285-295); Potassium 3.7 mmol/L (3.5-5.1); Sodium 140 mmol/L (136-145); Total Bilirubin 0.5 mg/dL (0.15-1.2)
[2023-08-23 17:43] LABS: Basophils % 0.1 %; Eosinophils % 0.1 %; Hematocrit 45.8 % (36-47); Lymphocytes % 14.8 %; Mean Corpuscular HGB Conc 31.7 g/dL (30-55); Mean Corpuscular Hemoglobin 26.3 pg (27-33); Mean Corpuscular Volume 83.1 fl (85-98); Mean Platelet Volume 10.9 fL (7.4-10.4); Monocytes # 0.6 10^3/uL (0.2-0.9); Monocytes % 8.2 %; Neutrophils # 5.32 10^3/uL (1.8-7.7); Neutrophils % 76.5 %; Nucleated Red Blood Cells % 0 %; Platelet Count 293 10^3/cmm (157-399); Red Blood Count 5.51 10^6/uL (3.85-5.65); Red Cell Distribution Width 13.9 % (12.1-15.1); White Blood Count 6.96 10^3/uL (3.29-11.43)
--- NOTE | 2023-08-23 18:29 | W.ED.NAVMDI ---
HPI - Nausea/Vomiting/Diarrhea General: Chief complaint: Nausea/Vomiting/Diarrhea Stated complaint: n/v/d Time Seen by Provider: 08/23/23 18:25 History of Present Illness: Is a healthy 23-year-old female who presents to the emergency room with nausea vomiting and diarrhea. She says this started last night. She has not been able to keep anything down today. No focal abdominal pain. No fevers. No shortness of breath. No chest pain. She has a family member that had a similar illness. Review of Systems Narrative: Constitutional symptoms: Negative except as documented in HPI. Skin symptoms: Negative except as documented in HPI. Eye symptoms: Negative except as documented in HPI. ENMT symptoms: Negative except as documented in HPI. Respiratory symptoms: Negative except as documented in HPI. Cardiovascular symptoms: Negative except as documented in HPI. Gastrointestinal symptoms: Negative except as documented in HPI. Genitourinary symptoms: Negative except as documented in HPI. Musculoskeletal symptoms: Negative except as documented in HPI. Neurologic symptoms: Negative except as documented in HPI. Psychiatric symptoms: Negative except as documented in HPI. Endocrine symptoms: Negative except as documented in HPI. PFSH ED PFSH: Medical History No pertinent past medical history neghx: htn,dm,thyroid,dvt/pe PCP: Recurrent UTI Surgical History History of tympanostomy Status post cholecystectomy Status post tonsillectomy and adenoidectomy Family History Denies family history of Colon cancer Ovarian cancer Diabetes Heart disease Hyperlipidemia Breast cancer Family history of thyroid problem Hypertension Uterine cancer Stroke Female Reproductive History: Date of last menstrual period: 08/02/23 Physical Exam Narrative: EXAM NARRATIVE: General: Alert, no acute distress. Skin: Warm, dry. Head: Normocephalic, atraumatic. Neck: Supple, trachea midline. Eye: Extraocular movements are intact. Ears, nose, mouth and throat: Dry oral mucosa Cardiovascular: Regular, Normal peripheral perfusion. Respiratory: Lungs are clear to auscultation, respirations are non-labored, breath sounds are equal, Symmetrical chest wall expansion. Gastrointestinal: Soft, Nontender, Non distended, Normal bowel sounds. Musculoskeletal: Normal ROM, no deformity. Neurological: Alert and oriented, No focal neurological deficit observed. Psychiatric: Cooperative, appropriate mood & affect. Course Vital Signs: Vital signs: Vital Signs Temperature 98.6 F 08/23/23 16:13 Pulse Rate 85 08/23/23 18:45 Respiratory Rate 18 08/23/23 16:13 Blood Pressure 124/71 08/23/23 18:45 Pulse Oximetry 99 08/23/23 18:45 Oxygen Delivery Me thod Room Air 08/23/23 18:45 MDM - Nausea/Vomiting/Diarrhea Medical Decision Making Medical decision making: Differential diagnosis including but not limited to and based on the above HPI, review of systems and physical exam: In this patient with nausea vomiting and diarrhea she likely has a viral gastroenteritis. Basic lab work was ordered to evaluate for leukocytosis and renal failure. Also urine was ordered. Orders placed to evaluate differential diagnosis based on the above differential, HPI and physical exam Lab Review: Laboratory results were reviewed and interpreted by myself the emergency room physician. Patient has normal white count at 7. Hemoglobin is 14.5. BUN and creatinine are 11 and 0.8. Bicarb is mildly low at 20 which would indicate a mild acidosis secondary to her vomiting and dehydration. Patient does have a few whites in her urine which might indicate an early infection particularly given her low back pain. Reexamination: Lab Data 08/23/23 17:38 08/23/23 17:00 Laboratory Results WBC 6.96 10^3/uL (3.29-11.43) 08/23/23 17:38 Corrected WBC Cancelled 08/23/23 17:00 RBC 5.51 10^6/uL (3.85-5.65) 08/23/23 17:38 Hgb 14.50 g/dL (11.27-16.99) 08/23/23 17:38 Hct 45.8 % (36-47) 08/23/23 17:38 MCV 83.1 fl (85-98) L 08/23/23 17:38 MCH 26.3 pg (27-33) L 08/23/23 17:38 MCHC 31.7 g/dL (30-55) 08/23/23 17:38 RDW 13.9 % (12.1-15.1) 08/23/23 17:38 Plt Count 293 10^3/cmm (157-399) 08/23/23 17:38 MPV 10.9 fL (7.4-10.4) H 08/23/23 17:38 Gran % Cancelled 08/23/23 17:00 Neut % (Auto) 76.5 % 08/23/23 17:38 Lymph % (Auto) 14.8 % 08/23/23 17:38 [place] % (Auto) 8.2 % 08/23/23 17:38 Eos % (Auto) 0.1 % 08/23/23 17:38 Baso % (Auto) 0.1 % 08/23/23 17:38 Neut # (Auto) 5.32 10^3/uL (1.8-7.7) 08/23/23 17:38 Lymph # (Auto) 1.0 10^3/uL (0.8-4.8) 08/23/23 17:38 [place] # (Auto) 0.6 10^3/uL (0.2-0.9) 08/23/23 17:38 Eos # (Auto) 0.0 10^3/uL (0.0-0.8) 08/23/23 17:38 Baso # (Auto) 0.0 10^3/uL (0.0-0.1) 08/23/23 17:38 Absolute Gran (auto) Cancelled 08/23/23 17:00 Nucleated RBC % (auto) 0 % 08/23/23 17:38 Nucleated RBCs # 0.0 /100WBC 08/23/23 17:38 Sodium 140 mmol/L (136-145) 08/23/23 17:00 Potassium 3.7 mmol/L (3.5-5.1) 08/23/23 17:00 Chloride 105 mmol/L (98-107) 08/23/23 17:00 Carbon Dioxide 20 mmol/L (22-29) L 08/23/23 17:00 Anion Gap 18.7 (5-19) 08/23/23 17:00 BUN 11 mg/dL (6-20) 08/23/23 17:00 Creatinine 0.8 mg/dL (0.5-0.9) 08/23/23 17:00 GFR Calculation 88.9 mL/min (90-130) L 08/23/23 17:00 Glucose 91 mg/dL (65-115) 08/23/23 17:00 Calculated Osmolality 289 mOsm/kg (285-295) 08/23/23 17:00 Calcium 9.6 mg/dL (8.5-10.5) 08/23/23 17:00 Total Bilirubin 0.5 mg/dL (0.15-1.2) 08/23/23 17:00 AST 17 U/L (0-32) 08/23/23 17:00 ALT 29 U/L (0-33) 08/23/23 17:00 Alkaline Phosphatase 100 U/L (35-105) 08/23/23 17:00 Total Protein 8.0 g/dL (6.6-8.7) 08/23/23 17:00 Albumin 4.5 g/dL (3.5-5.2) 08/23/23 17:00 Globulin 3.5 g/dL (1.3-4.6) 08/23/23 17:00 Lipase 15 U/L (13-60) 08/23/23 17:00 HCG, Qual Negative (Negative) 08/23/23 17:00 Urine Color Yellow (Yellow) 08/23/23 18:25 Urine Appearance Clear (CLEAR) 08/23/23 18:25 Urine pH 5 (5-7) 08/23/23 18:25 Ur Specific [place] 1.020 (1.005-1.030) 08/23/23 18:25 Urine Protein Trace (Negative) 08/23/23 18:25 Urine Glucose (UA) Norm (Normal) 08/23/23 18:25 Urine Ketones 2+ (Negative) H 08/23/23 18:25 Urine Blood Trace (Negative) H 08/23/23 18:25 Urine Nitrate Negative (Negative) 08/23/23 18:25 Urine Bilirubin Neg (Negative) 08/23/23 18:25 Urine Urobilinogen Neg mg/dL (Negative) 08/23/23 18:25 Ur Leukocyte Esterase Negative (Negative) 08/23/23 18:25 Urine RBC 0-4 /hpf (0-2) H 08/23/23 18:25 Urine WBC 5-10 /hpf (0-5) H 08/23/23 18:25 Ur Squamous Epith Cells 5-10 /hpf (0-5) H 08/23/23 18:25 Amorphous Sediment 1+ /hpf 08/23/23 18:25 Urine Bacteria 1+ /hpf (NONE) H 08/23/23 18:25 Urine Mucus 1+ /hpf 08/23/23 18:25 Influenza Type A Ag negative (Negative) 08/23/23 18:28 Influenza Type B Ag negative (Negative) 08/23/23 18:28 No radiology studies performed this visit Other Data Assessment and plan: Viral gastroenteritis Dehydration Urinary tract infection -1 L normal saline bolus, 2 doses of IV Zofran, IV Rocephin - Discharged home - Discussed plan with patient. Answered any questions. - Evaluation and treatment of this problem were appropriate in the emergency setting. Discharge Plan Discharge Patient Disposition: Home Clinical Impression: Viral gastroenteritis, Dehydration, Urinary tract infection Condition: Stable Prescriptions: New ondansetron 8 mg tablet,disintegrating 8 mg PO .q6 PRN (Reason: nausea and vomiting) Qty: 14 0RF cefdinir 300 mg capsule 300 mg PO BID 5 Days Qty: 10 0RF promethazine 25 mg suppository 25 mg DE Q6H PRN (Reason: nausea and vomiting) Qty: 12 0RF No Action albuterol sulfate [ProAir HFA] 90 mcg/actuation HFA aerosol inhaler 2 puff INHALATION Q4H PRN (Reason: shortness of breath or wheezing) Qty: 8 3RF acetaminophen [Tylenol] 325 mg tablet 325 mg PO QID PRN (Reason: Pain) Zyrtec 10 mg capsule 10 mg PO DAILY PRN ferrous sulfate 325 mg (65 mg iron) tablet 325 mg PO DAILY Qty: 90 0RF Gummies 400 mcg-35 mg- 25 mg-5 mg tablet,chewable PO ondansetron HCl 4 mg tablet 4 mg PO Q6H PRN (Reason: nausea and vomiting) Qty: 30 0RF Flovent HFA 110 mcg/actuation HFA aerosol inhaler 1 puff INHALATION BID acetaminophen 325 mg capsule 325 mg PO Q4H PRN (Reason: fever or pain) Qty: 60 0RF ibuprofen 800 mg tablet 800 mg PO TID PRN (Reason: pain) Qty: 60 0RF Iron (ferrous sulfate) 325 mg (65 mg iron) tablet 325 mg PO BID Qty: 60 0RF Colace 100 mg capsule 100 mg PO BID Qty: 60 0RF Discharge Orders: Discharge ED (Routine); Ordered 08/23/23 Ordered By: Bonnie Morris Referrals: Tawanda Rizzo FNP [Primary Care Provider] - (You have been screened and evaluated and felt safe for discharge. Health conditions do change or evolve sometimes and as such it is important that you follow up with your Primary Doctor to be re checked, 3-5 days is a general good time frame for follow up. You are always welcome to return to the ED for re assessment if your symptoms are worsening or you have new concerns) Discharge Diet: Full LIquid Discharge Activity: Increase activity as tolerated Patient Instructions: Gastroenteritis (ED), Opioid Safety, Pain Management Coding Level of Care Code ED Monomer Recovery Operator for Alexi Harrell
[2023-08-23] MEDS: sodium chloride 0.9% 1,000 ML 999 ML IV (18:42)
[2023-08-23] MEDS: ondansetron 2 mg/ML SDV 2 mL 8 MG IVP ×2 (18:43→20:05)
[2023-08-23 18:45] VITALS: BP 124/71; PULSE 85; O2SAT 99
[2023-08-23 18:52] LABS: Influenza A by IFA negative (Negative); Influenza B by IFA negative (Negative)
[2023-08-23 19:24] LABS: Add Urine Microscopic? YES; Bilirubin Urine Neg (Negative); Blood Urine Trace (Negative); Glucose Urine UA Norm (Normal); Ketones Urine 2+ (Negative); Leukocyte Esterase Urine Negative (Negative); Nitrate Urine Negative (Negative); Protein Urine Trace (Negative); Urine Appearance Clear (CLEAR); Urine Color Yellow (Yellow); Urobilinogen Urine Neg (Negative); pH Urine 5 (5-7)
[2023-08-23 19:25] LABS: Amorphous Sediment Urine 1+ /hpf; Bacteria Urine 1+ /hpf; Mucus Urine 1+ /hpf; RBC Urine 0-4 /hpf (0-2)
[2023-08-23] MEDS: cefTRIAXone 1,000 MG in sodium chloride 0.9% (plus) 50 ML 100 MG IV (20:07)
[2023-08-23 20:31] VITALS: BP 131/92; PULSE 90; RESP 16; O2SAT 100
== END 2023-08-23 20:30 | disposition home or self-care (01) ==
PROVIDERS: Physician Assistant; Emergency Provider Emergency Medicine; PCP Nurse Practitioner
DX: A08.4 Viral intestinal infection, unspecified (principal); E86.0 Dehydration; N39.0 Urinary tract infection, site not specified
CPT/HCPCS: 36415; 80053; 81001; 83690; 84703; 85025; 87804; 96365; 96375; 96376; 99284; J0696; J2405; J7030

== ENCOUNTER → 2025-02-05 16:13 | Outpatient (BNVA) | payer BC, MEDICAID, SELFPAY | PROVIDERS: PCP Nurse Practitioner; Visit Provider Obstetrics & Gynecology | DX: O03.9 Complete or unspecified spontaneous abortion without complication (principal) | CPT/HCPCS: 81025; 84315; 84702; 85025 ==